=== PATIENT | male | born 1960 | race Caucasian/White ===

== ENCOUNTER 2017-05-19 17:27 | Emergency (ER) | payer BC ==
[~2017-05-19] VITALS: Ht 177.8 cm; Wt 80.5 kg
[~2017-05-19 17:27] MED LIST: PREDNISONE50 MG PO; ZITHROMAX Z-PA250 MG PO
[2017-05-19] MEDS ORDERED: PERCOCET 5/31 TABLET PO (20:02)
[2017-05-19 20:05] VITALS: BP 152/78
== END 2017-05-19 20:09 | disposition home or self-care (01) ==
LOC: EME 17:27
DX: S93.401A Sprain of unspecified ligament of right ankle, initial encounter (principal); S90.01XA Contusion of right ankle, initial encounter; X50.9XXA Other and unspecified overexertion or strenuous movements or postures, initial encounter; Y93.89 Activity, other specified; Y92.007 Garden or yard of unspecified non-institutional (private) residence as the place of occurrence of the external cause; I10 Essential (primary) hypertension; I45.6 Pre-excitation syndrome
CPT/HCPCS: 93971; 99281; 99284

== ENCOUNTER 2017-11-24 14:07 | Emergency (ER) | payer BC ==
[~2017-11-24] VITALS: Ht 177.8 cm; Wt 81.6 kg
[~2017-11-24 14:07] MED LIST changes: +PERCOCET 5/31 TABLET PO
[2017-11-24 18:52] LABS: HEMATOCRIT 37.7 % (38.0-50.0); MCH 28.8 PG (29.0-34.0); MCHC 34.5 G/DL (30.0-36.0); MCV 83.6 FL (86-99); PLATELET COUNT 227 K/uL (156-360); RBC DIS.WIDTH-CV 12.5 % (11.8-14.6); RBC DIS.WIDTH-SD 38.1 % (39-53); RED BLOOD COUNT 4.51 M/uL (4.00-5.50); WHITE BLOOD COUNT 8.5 K/uL (4.1-10.2)
[2017-11-24 19:01] LABS: CHLORIDE 102 mEq/L (99-109); SODIUM 136 mEq/L (136-147)
[2017-11-24 19:02] LABS: GLUCOSE 125 mg/dL (70-99)
[2017-11-24 19:06] LABS: CREATININE 1.3 mg/dL (0.6-1.3); GFR ESTIMATE (CALCULATED) > 59 mL/min/ (58.99-99999)
[2017-11-24 19:07] LABS: UREA NITROGEN (BUN) 19 mg/dL (9-23)
[2017-11-24 19:09] LABS: URIC ACID 6.6 mg/dL (3.1-9.2)
[2017-11-24 19:37] LABS: ERTH.SED.RATE 55 MM/HR (0-20)
[2017-11-24] MEDS ORDERED: INDOCIN50 MG PO (21:13)
[2017-11-24] MEDS ORDERED: PERCOCET 5/31 TABLET PO (21:13)
[2017-11-24 22:02] LABS: APPEARANCE CLOUDY-LIGHT YELLOW; MONONUCLEAR WBC'S 4 %; POLYNUCLEAR WBC'S 96 % (0-25); RED CELL COUNT 2000 /MM^3 (0-1); SYNOVIAL FLUID EOSINOPHILS 0 % (0-25); WHITE CELL COUNT 8480 /MM^3 (0-200.0)
[2017-11-24 22:30] VITALS: BP 127/72
[2017-11-24 22:38] LABS: C-REACTIVE PROTEIN 162.3 MG/L (0-10)
[2017-11-25 07:01] LABS: CRYSTALS NO CRYSTALS SEEN
== END 2017-11-24 22:31 | disposition home or self-care (01) ==
LOC: EME 14:07
PROVIDERS: Nurse Practitioner Family
PROC: 0S9C3ZZ Drainage of Right Knee Joint, Percutaneous Approach (ICD-10-PCS; principal; 2017-11-24)
DX: M25.461 Effusion, right knee (principal); M17.11 Unilateral primary osteoarthritis, right knee; I10 Essential (primary) hypertension
CPT/HCPCS: 73564; 80048; 84550; 85027; 85651; 86140; 87040; 87205; 87899; 89051; 89060; 93971; 99281; 99285